=== PATIENT | female | born 1945 | race Caucasian/White ===

== ENCOUNTER 2021-04-09 04:21 | Inpatient (IN) ==
[2021-04-09] MEDS ORDERED: SODIUM CHLORIDE 0.9% 1,000 ML IV STA (04:49)
[2021-04-09] MEDS ORDERED: ONDANSETRON 4 MG/2 ML VIAL IV STA (04:49)
[2021-04-09 05:53] LABS: Alanine Aminotransferase 62 U/L (13-56); Alkaline Phosphatase 80 U/L (45-117); Amylase 31 U/L (25-115); Aspartate Amino Transferase 42 U/L (0-37); Blood Urea Nitrogen 7 MG/DL (7-18); Calcium 8.3 MG/DL (8.5-10.1); Carbon Dioxide 24 MMOL/L (21-32); Estimated Glom Filtration Rate 89 ML/MIN; Free T4 (Free Thyroxine) 1.34 NG/DL (0.76-1.46); Glucose 97 MG/DL (74-106); Osmolality,Calculated 235.5 MOS/KG (273-304); Potassium 3.7 MMOL/L (3.5-5.1)
[2021-04-09 06:03] LABS: Sodium 118 MMOL/L (136-145)
[2021-04-09] MEDS ORDERED: MAGNESIUM SULF RIDER 2 GM/50 ML PREMIX IV STA (06:08)
[2021-04-09 06:21] LABS: Basophils # 0.1 10*3/uL (0.0-0.2); Basophils % 0.9 % (0.0-0.8); Eosinophils # 0.7 10*3/uL (0.0-0.87); Eosinophils % 8.5 % (0.00-10.9); Hematocrit 39.1 VOL% (35.7-47.0); Hemoglobin 14.5 GM/DL (12.0-16.0); Immature Granulocytes % 0.5 %; Immature Granulocytes Absolute 0.04 #; Lymphocytes % 24.1 % (21.3-54.2); Mean Corpuscular HGB Conc 37.1 GM/DL (32-36); Mean Corpuscular Volume 85.2 FL (87-102); Mean Platelet Volume 9.1 FL (9.6-12.0); Monocytes % 16.5 % (1.7-12.7); Neutrophils % 49.5 % (38.7-73.9); Platelet Count 206 T/CUMM (130-400); Red Blood Count 4.59 MC/CUMM (3.8-5.5); Red Cell Distribution Width 11.6 % (9.3-17.3); White Blood Count 8.2 T/CUMM (4-12)
[2021-04-09 07:09] LABS: Eosinophils 11 % (0-10); Lymphocytes 29 % (20-55); Microcytosis Slight; Platelet Estimate Normal; Segmented Neutrophils 52 % (50-85); Total Cells Counted 100
[2021-04-09] MEDS ORDERED: GLUCAGON 1 MG VIAL IM PRN (10:05)
[2021-04-09] MEDS ORDERED: DEXTROSE 10% 25 GM/250 ML BAG IV PRN (10:05)
[2021-04-09] MEDS ORDERED: ACETAMINOPHEN 325 MG TABLET PO PRN (10:05)
[2021-04-09] MEDS ORDERED: FLUTICASONE 50 MCG NASAL SPRAY 16 GM BOTTLE BOTH NARES PRN (10:19)
[2021-04-09] MEDS: ENOXAPARIN 40 MG/0.4 ML SYRINGE SUBCUT SCH (11:02)
[2021-04-09] MEDS: ONDANSETRON 4 MG/2 ML VIAL IV PRN (11:02)
[2021-04-09] MEDS: SODIUM CHLORIDE 0.9% 1,000 ML IV SCH ×2 (11:03→18:08)
[2021-04-09 11:11] LABS: Osmolality,Calculated 235.5 MOS/KG (273-304); Potassium 3.7 MMOL/L (3.5-5.1)
[2021-04-09 11:40] LABS: Hepatitis B Core IgM Quant 0.14 Index; Hepatitis B Surface Ag Quant < 0.10 Index; Hepatitis B Surface Ag Result Non-Reactive (NonReactive); Hepatitis C Virus Ab Quant 0.07 Index; Hepatitis C Virus Ab Result Non-Reactive (NonReactive)
[2021-04-09 13:43] LABS: Mucus,Urine Moderate /LPF (Occasional); RBC,Urine 13 /HPF (0-4); Squamous Epithelial Cell,Urine Few /HPF (0-10); Urine Appearance Clear (Clear); Urine Color Yellow (Yellow); Urine Specific Gravity 1.028 (1.001-1.035)
[2021-04-09 13:44] LABS: Bilirubin,Urine Negative (Negative); Blood, Urine Trace mg/dL (Negative); Glucose,Urine (UA) Negative (Negative); Ketones,Urine Negative (Negative); Nitrite,Urine Negative (Negative); Protein,Urine Negative; Urine Urobilinogen 0.2 EU/DL (<2.0)
[2021-04-09 13:54] LABS: Osmolality,Calculated 235.5 MOS/KG (273-304); Potassium 3.5 MMOL/L (3.5-5.1)
[2021-04-09 17:59] LABS: Osmolality,Calculated 230.8 MOS/KG (273-304); Potassium 3.7 MMOL/L (3.5-5.1)
[2021-04-09 20:53] LABS: Calcium 7.6 MG/DL (8.5-10.1); Osmolality,Calculated 229.9 MOS/KG (273-304); Potassium 3.5 MMOL/L (3.5-5.1)
[2021-04-10 02:14] LABS: Calcium 8.1 MG/DL (8.5-10.1); Osmolality,Calculated 228.9 MOS/KG (273-304); Potassium 3.5 MMOL/L (3.5-5.1)
[2021-04-10 05:18] LABS: Basophils # 0.1 10*3/uL (0.0-0.2); Basophils % 0.9 % (0.0-0.8); Eosinophils # 0.6 10*3/uL (0.0-0.87); Eosinophils % 8.1 % (0.00-10.9); Hematocrit 33.5 VOL% (35.7-47.0); Hemoglobin 12.3 GM/DL (12.0-16.0); Immature Granulocytes % 0.3 %; Immature Granulocytes Absolute 0.02 #; Lymphocytes # 1.7 10*3/uL (1.4-4.0); Lymphocytes % 25.5 % (21.3-54.2); Mean Corpuscular HGB Conc 36.7 GM/DL (32-36); Monocytes % 24.3 % (1.7-12.7); Neutrophils % 40.9 % (38.7-73.9); Platelet Count 207 T/CUMM (130-400); Red Blood Count 3.94 MC/CUMM (3.8-5.5); Red Cell Distribution Width 11.5 % (9.3-17.3); White Blood Count 6.8 T/CUMM (4-12)
[2021-04-10] MEDS: SODIUM CHLORIDE 0.9% 1,000 ML IV SCH ×4 (05:25→19:30)
[2021-04-10 05:46] LABS: Eosinophils 9 % (0-10); Hypochromia Slight; Lymphocytes 28 % (20-55); Microcytosis Slight; Platelet Estimate Adequate; Segmented Neutrophils 47 % (50-85); Total Cells Counted 100
[2021-04-10 05:56] LABS: Albumin 2.3 G/DL (3.4-5.0); Bilirubin,Total 1.3 MG/DL (0.20-1.00); Calcium 8.2 MG/DL (8.5-10.1); Osmolality,Calculated 234.5 MOS/KG (273-304); Potassium 3.6 MMOL/L (3.5-5.1); Total Protein 5.4 G/DL (6.4-8.2)
[2021-04-10] MEDS ORDERED: MAGNESIUM SULF RIDER 4 GM/100 ML PREMIX IV PRN (07:34)
[2021-04-10] MEDS ORDERED: MAGNESIUM SULF RIDER 2 GM/50 ML PREMIX IV PRN (07:34)
[2021-04-10] MEDS: LEVOTHYROXINE 50 MCG TABLET PO SCH (09:54)
[2021-04-10] MEDS: amLODIPine 2.5 MG TABLET PO SCH (09:54)
[2021-04-10] MEDS: NEBIVOLOL 10 MG TABLET PO SCH (09:54)
[2021-04-10] MEDS: ENOXAPARIN 40 MG/0.4 ML SYRINGE SUBCUT SCH (09:54)
[2021-04-10] MEDS: ONDANSETRON 4 MG/2 ML VIAL IV PRN ×2 (11:19→17:42)
[2021-04-10 11:30] LABS: Calcium 8.1 MG/DL (8.5-10.1); Osmolality,Calculated 230.8 MOS/KG (273-304); Potassium 3.6 MMOL/L (3.5-5.1)
[2021-04-10 18:08] LABS: Calcium 7.5 MG/DL (8.5-10.1); Osmolality,Calculated 231.8 MOS/KG (273-304); Potassium 3.8 MMOL/L (3.5-5.1)
[2021-04-10 23:59] LABS: Calcium 7.4 MG/DL (8.5-10.1); Osmolality,Calculated 230.8 MOS/KG (273-304); Potassium 3.7 MMOL/L (3.5-5.1)
[2021-04-11 05:29] LABS: Basophils # 0.1 10*3/uL (0.0-0.2); Eosinophils # 0.5 10*3/uL (0.0-0.87); Eosinophils % 9.1 % (0.00-10.9); Hematocrit 32.9 VOL% (35.7-47.0); Immature Granulocytes % 0.4 %; Immature Granulocytes Absolute 0.02 #; Lymphocytes # 1.4 10*3/uL (1.4-4.0); Lymphocytes % 27.2 % (21.3-54.2); Mean Corpuscular HGB Conc 36.5 GM/DL (32-36); Mean Corpuscular Volume 85.9 FL (87-102); Mean Platelet Volume 8.9 FL (9.6-12.0); Monocytes % 25.4 % (1.7-12.7); Neutrophils % 36.9 % (38.7-73.9); Platelet Count 172 T/CUMM (130-400); Red Blood Count 3.83 MC/CUMM (3.8-5.5); Red Cell Distribution Width 11.6 % (9.3-17.3); White Blood Count 5.1 T/CUMM (4-12)
[2021-04-11 05:43] LABS: Calcium 7.5 MG/DL (8.5-10.1); Calcium 7.8 MG/DL (8.5-10.1); Osmolality,Calculated 228.9 MOS/KG (273-304); Potassium 3.6 MMOL/L (3.5-5.1)
[2021-04-11 06:00] LABS: Eosinophils 15 % (0-10); Lymphocytes 21 % (20-55); Segmented Neutrophils 49 % (50-85); Total Cells Counted 100
[2021-04-11 06:01] LABS: Hypochromia Slight; Microcytosis 1+
[2021-04-11] MEDS: ONDANSETRON 4 MG/2 ML VIAL IV PRN (08:09)
[2021-04-11] MEDS: ENOXAPARIN 40 MG/0.4 ML SYRINGE SUBCUT SCH (08:11)
[2021-04-11] MEDS: SODIUM CHLORIDE 0.9% 1,000 ML IV SCH (08:11)
[2021-04-11] MEDS: amLODIPine 2.5 MG TABLET PO SCH (09:13)
[2021-04-11] MEDS: LEVOTHYROXINE 50 MCG TABLET PO SCH (09:13)
[2021-04-11] MEDS: NEBIVOLOL 10 MG TABLET PO SCH (09:13)
[2021-04-12 04:56] LABS: Basophils % 0.8 % (0.0-0.8); Eosinophils # 0.5 10*3/uL (0.0-0.87); Eosinophils % 8.9 % (0.00-10.9); Hematocrit 31.7 VOL% (35.7-47.0); Hemoglobin 11.6 GM/DL (12.0-16.0); Immature Granulocytes % 0.4 %; Immature Granulocytes Absolute 0.02 #; Lymphocytes # 1.2 10*3/uL (1.4-4.0); Lymphocytes % 22.8 % (21.3-54.2); Mean Corpuscular HGB Conc 36.6 GM/DL (32-36); Mean Corpuscular Volume 84.5 FL (87-102); Mean Platelet Volume 8.9 FL (9.6-12.0); Monocytes % 29.1 % (1.7-12.7); Platelet Count 197 T/CUMM (130-400); Red Blood Count 3.75 MC/CUMM (3.8-5.5); Red Cell Distribution Width 11.7 % (9.3-17.3); White Blood Count 5.1 T/CUMM (4-12)
[2021-04-12 05:19] LABS: Calcium 7.9 MG/DL (8.5-10.1); Osmolality,Calculated 230.8 MOS/KG (273-304); Potassium 3.6 MMOL/L (3.5-5.1)
[2021-04-12 05:28] LABS: Eosinophils 12 % (0-10); Hypochromia Slight; Lymphocytes 26 % (20-55); Microcytosis Slight; Platelet Estimate Adequate; Segmented Neutrophils 44 % (50-85); Total Cells Counted 100
[2021-04-12] MEDS ORDERED: HYDROCORTISONE 100 MG VIAL IV ONE ×2 (07:08→20:00)
[2021-04-12] MEDS: ONDANSETRON 4 MG/2 ML VIAL IV PRN (09:36)
[2021-04-12] MEDS: ENOXAPARIN 40 MG/0.4 ML SYRINGE SUBCUT SCH (09:40)
[2021-04-12] MEDS: amLODIPine 2.5 MG TABLET PO SCH (09:40)
[2021-04-12] MEDS: NEBIVOLOL 10 MG TABLET PO SCH (09:40)
[2021-04-12] MEDS: LEVOTHYROXINE 50 MCG TABLET PO SCH (09:40)
[2021-04-12] MEDS ORDERED: methylPREDNISolone SOD SUC 125 MG/2 ML VIAL IV ONE (13:39)
[2021-04-13 05:19] LABS: Hematocrit 32.6 VOL% (35.7-47.0); Hemoglobin 11.9 GM/DL (12.0-16.0); Immature Granulocytes % 0.9 %; Immature Granulocytes Absolute 0.04 #; Lymphocytes # 0.4 10*3/uL (1.4-4.0); Lymphocytes % 8.8 % (21.3-54.2); Mean Corpuscular HGB Conc 36.5 GM/DL (32-36); Mean Corpuscular Volume 83.6 FL (87-102); Mean Platelet Volume 8.9 FL (9.6-12.0); Monocytes % 2.7 % (1.7-12.7); Neutrophils % 87.6 % (38.7-73.9); Platelet Count 220 T/CUMM (130-400); Red Cell Distribution Width 11.7 % (9.3-17.3); White Blood Count 4.4 T/CUMM (4-12)
[2021-04-13 05:37] LABS: Calcium 8.9 MG/DL (8.5-10.1); Osmolality,Calculated 241.3 MOS/KG (273-304); Potassium 3.6 MMOL/L (3.5-5.1)
[2021-04-13 06:12] LABS: Free T4 (Free Thyroxine) 1.37 NG/DL (0.76-1.46); Thyroid Stimulating Hormone 1.12 uIU/ml (0.358-3.74)
[2021-04-13] MEDS: ONDANSETRON 4 MG/2 ML VIAL IV PRN (06:15)
[2021-04-13 06:17] LABS: Uric Acid 4.6 MG/DL (2.6-6.0)
[2021-04-13] MEDS ORDERED: COSYNTROPIN 0.25 MG VIAL IV ONE (09:29)
[2021-04-13] MEDS: LEVOTHYROXINE 50 MCG TABLET PO SCH (09:44)
[2021-04-13] MEDS: amLODIPine 2.5 MG TABLET PO SCH (09:44)
[2021-04-13] MEDS: ENOXAPARIN 40 MG/0.4 ML SYRINGE SUBCUT SCH (09:44)
[2021-04-13] MEDS: NEBIVOLOL 10 MG TABLET PO SCH (09:44)
[2021-04-13] MEDS ORDERED: HYDROCORTISONE 100 MG VIAL IV SCH (10:00)
[2021-04-13] MEDS: HYDROCORTISONE 100 MG VIAL IV SCH ×2 (13:27→21:04)
[2021-04-14] MEDS: HYDROCORTISONE 100 MG VIAL IV SCH ×3 (04:42→20:44)
[2021-04-14 05:27] LABS: Calcium 9.3 MG/DL (8.5-10.1); Osmolality,Calculated 250.6 MOS/KG (273-304); Potassium 4.1 MMOL/L (3.5-5.1)
[2021-04-14] MEDS: ONDANSETRON 4 MG/2 ML VIAL IV PRN (06:01)
[2021-04-14] MEDS: amLODIPine 2.5 MG TABLET PO SCH (09:42)
[2021-04-14] MEDS: ENOXAPARIN 40 MG/0.4 ML SYRINGE SUBCUT SCH (09:42)
[2021-04-14] MEDS: NEBIVOLOL 10 MG TABLET PO SCH (09:42)
[2021-04-14] MEDS: LEVOTHYROXINE 50 MCG TABLET PO SCH (09:42)
[2021-04-15] MEDS: HYDROCORTISONE 100 MG VIAL IV SCH (04:35)
[2021-04-15 05:08] LABS: Basophils % 0.1 % (0.0-0.8); Hematocrit 28.5 VOL% (35.7-47.0); Immature Granulocytes % 0.5 %; Immature Granulocytes Absolute 0.05 #; Lymphocytes # 1.2 10*3/uL (1.4-4.0); Lymphocytes % 12.8 % (21.3-54.2); Mean Corpuscular HGB Conc 35.1 GM/DL (32-36); Mean Corpuscular Volume 89.3 FL (87-102); Monocytes % 10.3 % (1.7-12.7); Neutrophils % 76.3 % (38.7-73.9); Platelet Count 271 T/CUMM (130-400); Red Blood Count 3.19 MC/CUMM (3.8-5.5); Red Cell Distribution Width 12.8 % (9.3-17.3); White Blood Count 9.4 T/CUMM (4-12)
[2021-04-15 05:28] LABS: Albumin 2.7 G/DL (3.4-5.0); Bilirubin,Total 0.7 MG/DL (0.20-1.00); Calcium 8.9 MG/DL (8.5-10.1); Osmolality,Calculated 264.5 MOS/KG (273-304); Potassium 4.5 MMOL/L (3.5-5.1); Total Protein 5.7 G/DL (6.4-8.2)
[2021-04-15] MEDS: amLODIPine 2.5 MG TABLET PO SCH (09:31)
[2021-04-15] MEDS: LEVOTHYROXINE 50 MCG TABLET PO SCH (09:31)
[2021-04-15] MEDS: NEBIVOLOL 10 MG TABLET PO SCH (09:31)
[2021-04-15] MEDS: ENOXAPARIN 40 MG/0.4 ML SYRINGE SUBCUT SCH (09:32)
[2021-04-15] MEDS: HYDROCORTISONE 10 MG TABLET PO SCH (20:18)
[2021-04-16 06:09] LABS: Basophils % 0.4 % (0.0-0.8); Eosinophils # 0.1 10*3/uL (0.0-0.87); Hematocrit 30.9 VOL% (35.7-47.0); Hemoglobin 10.7 GM/DL (12.0-16.0); Immature Granulocytes % 0.6 %; Immature Granulocytes Absolute 0.04 #; Lymphocytes # 2.5 10*3/uL (1.4-4.0); Lymphocytes % 35.9 % (21.3-54.2); Mean Corpuscular HGB Conc 34.6 GM/DL (32-36); Mean Corpuscular Volume 91.4 FL (87-102); Mean Platelet Volume 8.9 FL (9.6-12.0); Monocytes % 14.7 % (1.7-12.7); Neutrophils % 47.4 % (38.7-73.9); Platelet Count 288 T/CUMM (130-400); Red Blood Count 3.38 MC/CUMM (3.8-5.5); Red Cell Distribution Width 13.2 % (9.3-17.3)
[2021-04-16 06:24] LABS: Albumin 2.7 G/DL (3.4-5.0); Bilirubin,Total 0.4 MG/DL (0.20-1.00); Calcium 9.1 MG/DL (8.5-10.1); Osmolality,Calculated 267.2 MOS/KG (273-304); Potassium 4.1 MMOL/L (3.5-5.1); Total Protein 5.7 G/DL (6.4-8.2)
[2021-04-16] MEDS: NEBIVOLOL 10 MG TABLET PO SCH (09:13)
[2021-04-16] MEDS: LEVOTHYROXINE 50 MCG TABLET PO SCH (09:13)
[2021-04-16] MEDS: amLODIPine 2.5 MG TABLET PO SCH (09:14)
[2021-04-16] MEDS: ENOXAPARIN 40 MG/0.4 ML SYRINGE SUBCUT SCH (09:25)
[2021-04-16] MEDS: HYDROCORTISONE 10 MG TABLET PO SCH (10:18)
[2021-04-16 11:15] VITALS: BP 112/66
== END 2021-04-16 14:00 | disposition home health service (06) | DRG 644 ==
LOC: N.ED 04:21 → N.EDINP 08:48 → SUATTDRO 08:48 → N.EDINP 16:33 → N.TELEN 16:36
PROVIDERS: ADMIT Internal Medicine; ATTEND Internal Medicine